=== PATIENT | female | born 1995 | race Caucasian/White ===

== ENCOUNTER 2023-02-24 21:33 | Emergency (ER) | payer OTHER, SELFPAY ==
--- NOTE | ~2023-02-24 | CT_ITS ---
Clinical Indication: Pain CT Scan of the Chest, Abdomen, and Pelvis with Contrast: Technique: Contiguous sections were acquired throughout the chest, abdomen, and pelvis after intraven ous administration of 100 cc of Omnipaque 350. Dose reduction technique was used on this scan by luke joyaing automated exposure control and iterative reconstruction technique. The dose-length product (DL P) was 855.45 mGy-cm. Findings: There is no evidence of any significant mediastinal, hilar or axillary lymphadenopathy. The mediastin al soft tissues and vascular structures appear normal. There is no evidence of pleural or pericardial effusion. The lungs are clear. No pulmonary nodules or infiltrates are noted. The liver, spleen, pancreas, gallbladder, adrenals and kidneys are within normal limits. No evidence of aortic aneurysm. No lymphadenopathy. No bowel obstruction. There is mild extensive haziness in the pericolonic fat and mesentery. Possible mild wall thickening of several left upper quadrant small bowel loops. No abscess or free. Urinary bladder is unremarkable. No definite adnexal mass seen. Small amount of pelvic ascites presen t. Impression: Questionable small bowel enteritis, most notably in the left upper quadrant. There are mild nonspecif ic inflammatory changes in the mesentery. Small amount of pelvic ascites, nonspecific. Reviewed, dictated and finalized at location . 411 DIRECTORY ASSISTANCE OPERATOR Impression: Questionable small bowel enteritis, most notably in the left upper quadrant. Th ere are mild nonspecific inflammatory changes in the mesentery. Small amount of pelvic ascites, nonspecific.
--- NOTE | ~2023-02-24 | XR_ITS ---
Clinical Indication: Chest pain PA and lateral views of the chest: Comparison: None Findings: The lungs are clear, without evidence of focal consolidation or pleural effusion. Cardiome diastinal silhouette is within normal limits. Bones and soft tissues are unremarkable. Impression: Normal chest. Reviewed, dictated and finalized at location . R SPORTS COACH OR INSTRUCTOR Impression: Normal chest.
--- NOTE | 2023-02-24 21:34 | ECG_ITS ---
Measurements Intervals [place] Rate: 87 P: 85 [place]: 123 QRS: 45 QRSD: 95 T: 50 QT: 357 QTc: 432 Interpretive Statements SINUS RHYTHM BASELINE ARTIFACT- I, III, AVR, AVL, AVF, V1-V6 NORMAL ECG NO PREVIOUS ECG AVAILABLE FOR COMPARISON Electronically Signed On 02-25-2023 10:24:57 LASER SPECIALIST by Erik Urban D.O.
[2023-02-24 21:35] VITALS: BP 116/96; PULSE 98; RESP 15; TEMP 36.4; O2SAT 100
[2023-02-24 21:55] LABS: Basophils Absolute Auto 0.1 K/mm3 (0.0-0.1); Basophils Percent Auto 0.4 % (0.2-1.2); Eosinophils Absolute Auto 0.1 K/mm3 (0-0.3); Eosinophils Percent Auto 0.8 % (0-4.4); Immature Granulocyte Absolute 0.03 K/mm3 (0.00-0.031); Immature Granulocyte Percent A 0.3 % (0-0.5); Lymphocytes Absolute Auto 3.21 K/mm3 (0.9-3.2); Mean Corpuscular HGB Conc 29.4 g/dl (32-36); Mean Corpuscular Hemoglobin 23.5 pg (26-34); Mean Platelet Volume 8.2 fl (7.4-10.4); Monocytes Absolute Auto 0.6 K/mm3 (0.1-0.6); Monocytes Percent Auto 4.8 % (2.6-8.5); Neutrophils Absolute Auto 7.9 K/mm3 (1.3-6.7); Neutrophils Percent Auto 66.7 % (45.5-73.1); Platelet Count Result 568 k/mm3 (150-375); Red Blood Count 4.25 M/mm3 (4.2-5.4); Red Cell Distribution Width 15.4 % (11.5-14.5); White Blood Count 11.9 K/mm3 (4.5-10.0)
[2023-02-24 22:05] LABS: Alanine Aminotransferase 14 U/L (6-35); Albumin Level 3.9 g/dL (3.5-5.1); Alkaline Phosphatase 74 U/L (38-126); Anion Gap 6 mmol/L (8-16); Aspartate Amino Transferase 23 U/L (14-36); Bilirubin,Total 0.3 mg/dL (0.2-1.3); Blood Urea Nitrogen 10 mg/dL (7-17); Carbon Dioxide 28 mmol/L (22-30); Chloride 102 mmol/L (98-107); Estimated CRCL calculation 120 ml/min; Estimated Glomerular Filt Rate > 60; Glucose 100 mg/dL (65-110); Lipase 100 U/L (23-300); Potassium 4.1 mmol/L (3.4-5.0); Sodium 136 mmol/L (137-145)
[2023-02-24 22:06] LABS: Hypochromasia 1+ (NORMAL); Platelet Estimate Increased (Adequate); Schistocytes None Seen (NORMAL); Target Cells 1+ (NORMAL)
[2023-02-24 22:10] LABS: INR 0.9
[2023-02-24 22:11] LABS: Partial Thromboplastin Time 33.6 SECONDS (22.3-36.8)
[2023-02-24 22:18] LABS: Troponin I < 0.012 ng/mL (0.000-0.034)
[2023-02-24 22:44] VITALS: PULSE 76
[2023-02-24 22:45] VITALS: BP 115/65; PULSE 70; RESP 18; O2SAT 100
[2023-02-24 22:59] LABS: Appearance Urine Cloudy (Clear); Bacteria Urine Rare /hpf; Bilirubin Urine Negative (Negative); Blood Urine Negative (Negative); Color Urine Yellow (Yellow); Glucose Urine UA Negative (Negative); Ketones Urine Negative (Negative); Leukocyte Esterase Ur Trace LEU/UL (Negative); Nitrate Urine Negative (Negative); Non Pathogenic Casts 0-2; Protein Urine Negative (Negative); RBC Urine 0-2 /hpf (0-2); Specific Grav Ur 1.025 (1.001-1.035); Squamous Epithelial Cell Urine Moderate /hpf (Few)
[2023-02-24 23:00] LABS: Add Urine Microscopic? YES
[2023-02-24 23:31] VITALS: BP 114/66; PULSE 76; O2SAT 99
--- NOTE | 2023-02-24 23:42 | ED.CHESTPAIN ---
HPI - Chest Pain General Chief Complaint: Chest Pain <JANET Cortez Last Filed: 02/25/23 03:11> Stated Complaint: chest pain <JANET Cortez Last Filed: 02/25/23 03:11> Time Seen by Provider: 02/24/23 22:40 <JANET Cortez Last Filed: 02/25/23 03:11> History of Present Illness HPI narrative: 27-year-old female reports for evaluation for right upper quadrant abdominal pain and right inferior rib pain x1 day. Patient states the pain is sharp in nature and is worse with deep inspiration and coughing. When asked where the pain is, she points to right upper quadrant just inferior to her lowest rib. She denies fever, nausea, vomiting or diarrhea. She endorses she feels constipated, last bowel movement was 3 days ago. Denies cough or congestion. No prior abdominal surgeries. <JANET Cortez Last Filed: 02/25/23 03:11> Related Data Allergies/Adverse Reactions: Allergies Allergy/AdvReac Type Severity Reaction Status Date / Time No Known Allergies Allergy Verified 02/24/23 22:46 <JANET Cortez Last Filed: 02/25/23 03:11> Review of Systems Review of Systems: CONSTITUTIONAL: Denies fever, chills, or sweats. EYES: Denies visual changes, redness, or discharge. ENT: Denies rhinorrhea, congestion, sore throat, or otalgia. CARDIOVASCULAR: Denies chest pain, palpitations, or edema. RESPIRATORY: Denies cough or dyspnea. GASTROINTESTINAL: See HPI GENITOURINARY: Denies dysuria or hematuria. SKIN: Denies rash or itching. MUSCULOSKELETAL: Denies back pain, joint pain, or myalgia. NEUROLOGIC: Denies headache, numbness, or weakness. PSYCHIATRIC: Denies anxiety or depression. <JANET Cortez Last Filed: 02/25/23 03:11> Exam Narrative: GENERAL: Well-appearing, well-nourished, and in no acute distress. HEAD: Normocephalic, atraumatic. EYES: PERRLA and EOMI. ENT: Nares clear, no rhinorrhea or epistaxis. Mucous membranes moist. NECK: Supple. CHEST: Clear to auscultation. No respiratory distress. Tenderness to the anterior inferior ribs without overlying skin changes, step-offs or crepitus. HEART: Regular rate and rhythm. No murmur heard. Normal peripheral pulses. ABDOMEN: normoactive bowel sounds. Abdomen soft with tenderness and guarding in the right upper quadrant. Positive Francisco's. No overlying skin changes. No rebound or rigidity. No CVA tenderness. EXTREMITIES: Normal range of motion. No edema. SKIN: Warm, dry, no rash. NEURO: No focal deficits. Alert and oriented x3 <JANET Cortez Last Filed: 02/25/23 03:11> Course Vital Signs Vital signs: Vital Signs Temperature 97.5 F L 02/24/23 21:35 Pulse Rate 98 02/24/23 21:35 Respiratory Rate 15 02/24/23 21:35 Blood Pressure 116/96 H 02/24/23 21:35 Pulse Oximetry 100 02/24/23 21:35 Oxygen Delivery Room Air 02/24/23 21:35 Temperature 97.5 F L 02/24/23 21:35 Pulse Rate 75 02/25/23 04:33 Respiratory Rate 18 02/24/23 22:45 Blood Pressure 126/64 02/25/23 04:33 Pulse Oximetry 99 02/25/23 04:33 Oxygen Delivery Room Air 02/24/23 21:35 <JANET Cortez Last Filed: 02/25/23 03:11> Vital Signs Temperature 97.5 F L 02/24/23 21:35 Pulse Rate 98 02/24/23 21:35 Respiratory Rate 15 02/24/23 21:35 Blood Pressure 116/96 H 02/24/23 21:35 Pulse Oximetry 100 02/24/23 21:35 Oxygen Delivery Room Air 02/24/23 21:35 Temperature 97.5 F L 02/24/23 21:35 Pulse Rate 75 02/25/23 04:33 Respiratory Rate 18 02/24/23 22:45 Blood Pressure 126/64 02/25/23 04:33 Pulse Oximetry 99 02/25/23 04:33 Oxygen Delivery Room Air 02/24/23 21:35 <MD Carey Marvin Last Filed: 02/25/23 07:58> MDM - Chest Pain MDM Narrative Medical decision making narrative: 27-year-old female reports for evaluation for right upper quadrant/ right inferior rib pain for 1 day. See HPI for further histo
[2023-02-25] MEDS: FAMOTIDINE 20 MG/2 ML VIAL IV PUSH (00:05)
[2023-02-25] MEDS: KETOROLAC 30 MG/ML VIAL (*BKC) IV PUSH (00:05)
[2023-02-25] MEDS: SODIUM CHLORIDE 0.9% IV 1,000 ML 999 ML IV CONT (00:06)
[2023-02-25 01:10] LABS: Lactic Acid Reflex < 0.5 mmol/L (0.7-2.0)
[2023-02-25 01:29] LABS: Troponin I < 0.012 ng/mL (0.000-0.034)
[2023-02-25 01:49] VITALS: BP 111/73; PULSE 83; O2SAT 100
[2023-02-25 04:05] LABS: Troponin I < 0.012 ng/mL (0.000-0.034)
[2023-02-25 04:33] VITALS: BP 126/64; PULSE 75; O2SAT 99
== END 2023-02-25 04:33 | disposition left against medical advice (07) ==
PROVIDERS: Emergency Medicine; Emergency Provider Physician Assistant
DX: K59.00 Constipation, unspecified (principal); R10.11 Right upper quadrant pain
CPT/HCPCS: 36415; 71046; 71260; 74177; 80053; 81001; 81025; 83605; 83690; 84484; 85025; 85610; 85730; 87077; 87086; 87088; 93005; 96361; 96374; 96375; 99284; J1885; J7030; Q9967

== ENCOUNTER 2023-02-26 03:03 | Emergency (ER) | payer OTHER, SELFPAY ==
--- NOTE | ~2023-02-26 | US_ITS ---
EXAMINATION: US pelvic complete w TV DATE: 02/26/2023 09:19 INDICATION: Abnormal CT TECHNIQUE: Multiple transabdominal and endovaginal sonographic images of the pelvis were obtained. COMPARISON: CT dated 02/26/2023 FINDINGS: The uterus measures 10.1 x 5.9 x 4.7 cm. 5 mm nabothian cyst at the cervix. The endometrial complex m easures 6 mm in thickness. The right ovary measures 3.3 x 2.2 x 2.0 cm. The left ovary measures 4.3 x 2.7 x 2.6 cm. There is normal vascular flow in the ovaries. There are a few subcentimeter anechoic c ysts/follicles at the bilateral ovaries. There is a larger 2.1 cm cyst with mildly increased peripher al vascular flow at the left ovary consistent with a corpus luteum cyst. Vascular flow identified in both ovaries on color Doppler. There is a small amount of anechoic free fluid in the cul-de-sac. IMPRESSION: 1. Small amount of simple appearing anechoic free fluid in the cul-de-sac. 2. 2.1 cm likely corpus luteum cyst in the left ovary. Reviewed, dictated and finalized at location A. UCT CRAFTSMAN
--- NOTE | ~2023-02-26 | CT_ITS ---
CT of the Abdomen and Pelvis: Indication: Abdominal pain Technique: 2.5 mm axial scans were obtained through the abdomen and pelvis following intravenous adm inistration of 100 cc of Omnipaque 350. Dose reduction technique was used on this scan by utilizing a utomated exposure control and iterative reconstruction technique. The dose-length product (DLP) was 6 23.18 mGy-cm. COMPARISON: 02/25/2023 Findings: Scans through the lung bases demonstrate right basilar atelectatic change. The liver, spleen, pancreas, gallbladder, adrenals and kidneys are within normal limits. No evidence of aortic aneurysm. No lymphadenopathy. No bowel obstruction or bowel wall thickening. There is no evidence to suggest acute appendicitis. Images through the pelvis were performed. Urinary bladder unremarkable. Small amount of free fluid pr esent in the pelvis, possible mild peripheral enhancement. Both ovaries are minimally prominent, with out distinct abnormal mass. Uterus appears grossly unremarkable. Possible mild infiltration of pelvic fat planes. Impression: Probable free fluid with possible mild peripheral enhancement. Mild dilatation of pelvic fat planes. Consider pelvic inflammatory disease with possible small pelvic abscess versus free fluid. No other significant findings. Reviewed, dictated and finalized at location . NCIAL AIDS OFFICER Impression: Probable free fluid with possible mild peripheral enhancement. Mild dilatation of pelvic fat planes. Consider pelvic inflammatory disease with possible small pelvic abscess versus free fluid. No other significant findings.
[2023-02-26 03:07] VITALS: BP 121/69; PULSE 83; RESP 17; TEMP 36.6; O2SAT 100
[2023-02-26 03:46] LABS: Appearance Urine Clear (Clear); Bacteria Urine None Seen /hpf; Bilirubin Urine Negative (Negative); Blood Urine Negative (Negative); Color Urine Yellow (Yellow); Glucose Urine UA Negative (Negative); Ketones Urine Negative (Negative); Leukocyte Esterase Ur Trace LEU/UL (Negative); Nitrate Urine Negative (Negative); Non Pathogenic Casts 0-2; Protein Urine Negative (Negative); RBC Urine 0-2 /hpf (0-2); Specific Grav Ur 1.018 (1.001-1.035); Squamous Epithelial Cell Urine None seen /hpf (Few); Urobilinogen Urine 0.2 mg/dL (<2.0); WBC Urine 0-5 /hpf; pH Urine 6.5 (5.0-9.0)
[2023-02-26 04:18] LABS: Add Urine Microscopic? YES
--- NOTE | 2023-02-26 05:45 | ED.ABDPAIN ---
HPI - Abdominal Pain General Chief Complaint: Abdominal Pain <Matt Rosales DO - Last Filed: 02/26/23 08:29> Stated Complaint: Sharp pain to right side, <Matt Rosales DO - Last Filed: 02/26/23 08:29> Time Seen by Provider: 02/26/23 03:20 <Matt Rosales DO - Last Filed: 02/26/23 08:29> Source: patient <Matt Rosales DO - Last Filed: 02/26/23 08:29> Limitations: no limitations <Matt Rosales DO - Last Filed: 02/26/23 08:29> History of Present Illness HPI narrative: Patient is a 27-year-old female presents to the emergency department complaining of abdominal pain. Patient states the pain is in her right upper abdomen, sharp, has been present for the past 2 days, constant, waxes and wanes, has not noticed anything making the pain better or worse, denies any she has pain in the past, has not tried anything for the pain. Patient states her last menstrual period was 1 month ago and her last bowel movement was 2 days ago. Patient denies history of kidney stones. Patient emesis to having her gallbladder. Patient denies nausea, vomiting, diarrhea, melena, hematochezia, dysuria, hematuria, urinary frequency, urinary urgency, cough, chest pain, shortness of breath, fever, sore throat, nasal congestion, recent injuries, recent illness. Patient admits to being sexually active, intermittently uses protection, denies history of sexually transmitted infections. Patient denies any abnormal vaginal discharge. <Matt Rosales DO - Last Filed: 02/26/23 08:29> Related Data Allergies/Adverse Reactions: Allergies Allergy/AdvReac Type Severity Reaction Status Date / Time No Known Allergies Allergy Verified 02/24/23 22:46 <Matt Rosales DO - Last Filed: 02/26/23 08:29> Review of Systems Review of Systems: A 10 system review of systems was completed on the patient and is negative except for what is stated in the HPI. Nursing and ancillary documentation was reviewed. <Matt Rosales DO - Last Filed: 02/26/23 08:29> PMFSH Comments At time of signature, I have reviewed and agree with nursing past medical, surgical, social and family history unless otherwise noted. Please see the nursing chart for further information. There is no relevant family history pertinent to the presenting complaint. <Matt Rosales DO - Last Filed: 02/26/23 08:29> Exam Narrative: CONST: No acute distress. Well nourished. Patient is sleeping comfortably in bed upon my arrival to the room. HENMT: Head is normocephalic and atraumatic. Moist mucous membranes. No posterior oropharynx erythema. EYES: No conjunctival icterus, injection, or pallor. PERRL. NECK: No meningeal signs. RESP: Able to speak in full sentences. Normal respiratory effort. CTAB. CARDIO: Regular rate. Regular rhythm. 2+ DP and radial pulses bilaterally. GI: Nondistended. Soft. Mild tenderness palpation in the right upper quadrant. Positive Francisco sign. No rebound or guarding or rigidity. No McBurney's point tenderness to palpation. No palpable masses or hernias. : No CVA tenderness to palpation. Pelvic examination performed with female nurse finance clerk present at bedside. Cervical os is closed, there is mild erythema at the cervical os with scant friability, no on discharge: From the cervix however there is white discharge that is thin and present on the cervix and within the vaginal vault. Bimanual examination revealed cervical motion tenderness. No palpable adnexal masses or adnexal tenderness to palpation SKIN: No rashes or lesions noted on exposed skin. NEURO: Oriented x3. Moves all extremities. EXTREM/MSK/BACK: No pedal edema. PSYCH: Normal affect. <Matt Rosales, - Last Filed: 02/26/23 08:29> Course Course Emergency Course: patient educated on diagnosis and treatment plan. Encouraged her to contact her sexual partner so he can also be treated for STI. She also reports she will follo
[2023-02-26] MEDS: SODIUM CHLORIDE 0.9% IV 1,000 ML 999 ML IV CONT (06:10)
[2023-02-26 06:11] LABS: Basophils Absolute Auto 0.1 K/mm3 (0.0-0.1); Basophils Percent Auto 0.6 % (0.2-1.2); Eosinophils Absolute Auto 0.1 K/mm3 (0-0.3); Eosinophils Percent Auto 1.2 % (0-4.4); Hematocrit 31.2 % (37.0-47.0); Immature Granulocyte Absolute 0.04 K/mm3 (0.00-0.031); Immature Granulocyte Percent A 0.4 % (0-0.5); Lymphocytes Absolute Auto 3.01 K/mm3 (0.9-3.2); Lymphocytes Percent Auto 33.7 % (18.3-44.2); Mean Corpuscular HGB Conc 28.8 g/dl (32-36); Mean Corpuscular Hemoglobin 23.5 pg (26-34); Mean Corpuscular Volume 81.5 fl (80-100); Mean Platelet Volume 8.3 fl (7.4-10.4); Monocytes Absolute Auto 0.6 K/mm3 (0.1-0.6); Monocytes Percent Auto 6.4 % (2.6-8.5); Neutrophils Absolute Auto 5.2 K/mm3 (1.3-6.7); Neutrophils Percent Auto 57.7 % (45.5-73.1); Platelet Count Result 471 k/mm3 (150-375); Red Blood Count 3.83 M/mm3 (4.2-5.4); Red Cell Distribution Width 15.3 % (11.5-14.5); White Blood Count 8.9 K/mm3 (4.5-10.0)
[2023-02-26] MEDS: HYDROcodone/acetaminophen (*CRX) 5-325 MG TABLET 1 TAB PO (06:11)
[2023-02-26 06:16] VITALS: BP 100/52; PULSE 74; RESP 14; O2SAT 99
[2023-02-26 06:25] LABS: Alanine Aminotransferase 13 U/L (6-35); Albumin Level 3.2 g/dL (3.5-5.1); Alkaline Phosphatase 65 U/L (38-126); Anion Gap 5 mmol/L (8-16); Aspartate Amino Transferase 23 U/L (14-36); Bilirubin,Total 0.1 mg/dL (0.2-1.3); Blood Urea Nitrogen 9 mg/dL (7-17); Calcium 8.4 mg/dL (8.4-10.2); Carbon Dioxide 28 mmol/L (22-30); Chloride 104 mmol/L (98-107); Estimated CRCL calculation 120 ml/min; Estimated Glomerular Filt Rate > 60; Glucose 91 mg/dL (65-110); Lipase 109 U/L (23-300); Magnesium 1.9 mg/dL (1.6-2.3); Potassium 3.8 mmol/L (3.4-5.0); Sodium 137 mmol/L (137-145)
[2023-02-26 06:46] LABS: Hypochromasia 1+ (NORMAL); Platelet Estimate Increased (Adequate); Schistocytes None Seen (NORMAL)
[2023-02-26 07:21] VITALS: BP 128/82; PULSE 63; RESP 18; O2SAT 97
[2023-02-26 09:57] LABS: Trichomonas Vag PCR NOT DETECTED (NOT DETECTE)
[2023-02-26 10:20] LABS: Chlamydia trachomatis DETECTED (NOT DETECTE); Neisseria gonorrhoeae PCR NOT DETECTED (NOT DETECTE)
[2023-02-26] MEDS: LIDOCAINE HCL 1% LOCAL INJ 10 ML VIAL (10:43)
[2023-02-26] MEDS: cefTRIAXone 1 GM VIAL 0.5 GM IM (10:43)
[2023-02-26 10:44] VITALS: BP 114/64; PULSE 80; RESP 18; O2SAT 98
== END 2023-02-26 10:53 | disposition home or self-care (01) ==
PROVIDERS: Student in an Organized Health Care Education/Training Program; Emergency Provider Emergency Medicine
DX: N73.9 Female pelvic inflammatory disease, unspecified (principal); A74.81 Chlamydial peritonitis; N83.12 Corpus luteum cyst of left ovary
CPT/HCPCS: 36415; 74177; 76830; 76856; 80053; 81001; 81025; 83690; 83735; 85025; 87491; 87591; 87661; 96360; 96372; 99284; A9270; J0696; J7030; Q9967

== ENCOUNTER 2023-12-14 10:02 | Emergency (ER) | payer OTHER, SELFPAY ==
--- NOTE | ~2023-12-14 | XR_ITS ---
Right Knee Technique: AP, lateral, and sunrise views were obtained. Clinical History: Pain and swelling Findings: There is an acute, essentially nondisplaced, nondepressed fracture of the medial tibial steve teau, extending to the medial cortex of the medial tibial metaphyseal region. Associated moderate lip ohemarthrosis noted. Impression: Acute, essentially nondisplaced, nondepressed fracture isolated to the medial tibial plateau region, as detailed above. Associated moderate lipohemarthrosis. Reviewed, dictated and finalized at location M. Impression: Acute, essentially nondisplaced, nondepressed fracture isolated to the medial t ibial plateau region, as detailed above. Associated moderate lipohemarthrosis.
--- NOTE | 2023-12-14 10:16 | ED.LOWEXIN ---
HPI - Extremity Injury (Lower) General Chief Complaint: Extremity Injury, Lower Stated Complaint: R leg lump/pain Time Seen by Provider: 12/14/23 10:08 Source: patient Mode of arrival: ambulatory Limitations: no limitations History of Present Illness HPI Narrative: 28 years old white female tripped and fell on the right knee yesterday, complaining of right knee pain, denies other injuries. Patient reported that pain got worse standing and putting weight on the right leg or bending or extending her right. Related Data Allergies Allergy/AdvReac Type Severity Reaction Status Date / Time No Known Allergies Allergy Verified 02/24/23 22:46 Review of Systems Review of Systems: All systems reviewed & are unremarkable except as noted in HPI and below Exam Narrative: General appearance: Well-developed, well-nourished Skin: Normal color Head: Normocephalic, nontraumatic Eyes: Clear conjunctiva ENT: Oropharynx normal, ears normal, nose normal Neck: Supple, nontender Chest and respiratory: Airway patent, no respiratory distress, no accessory muscle use Heart: Regular rate/rhythm Abdomen: Soft, nontender, no organomegaly, quiet bowel sounds Vascular: Normal peripheral pulses, normal capillary refill. Musculoskeletal: Right knee exam showed diffuse tenderness, slightly swollen compared to the left 1, limited range of motion, Neurologic: Alert and oriented ?3, TRUST ADMINISTRATIVE ASSISTANT is normal as tested, no gross motor deficit Course Consultations Consultation #1: Dr. Kim Outpatient follow-up Date: 12/14/23 Time: 11:38 Vital Signs Vital signs: Vital Signs Temperature 36.9 C 12/14/23 10:30 Pulse Rate 87 12/14/23 10:30 Respiratory Rate 16 12/14/23 10:30 Blood Pressure 125/78 12/14/23 10:30 Pulse Oximetry 100 12/14/23 10:30 Temperature 36.9 C 12/14/23 10:30 Pulse Rate 87 12/14/23 10:30 Respiratory Rate 16 12/14/23 10:30 Blood Pressure 125/78 12/14/23 10:30 Pulse Oximetry 100 12/14/23 10:30 MDM - Extremity Injury (Lower) MDM Narrative Medical decision making narrative: patient had a fall yesterday on the right knee, Vital signs are stable Physical exam showing diffuse tenderness of the right knee with limited range of motion X-ray of the right knee showing nondisplaced nondepressed fracture tibial plateau Dr. Kim was notified, outpatient follow-up Knee immobilizer Nonweightbearing The pt was discharged to home.the pt,s condition upon discharge was fair,education was provided to the pt in reference to the final impression,discharge study results,treatment,prognosis and need for follow up . Differential Diagnosis Differential diagnosis: Likely other (Sprain/strain versus fracture) Imaging Data Radiologist's impression: Impressions Knee X-Ray 12/14/23 10:31 Impression: Acute, essentially nondisplaced, nondepressed fracture isolated to the medial tibial plateau region, as detailed above. Associated moderate lipohemarthrosis. Critical Care Time Critical Care Time Critical Care Time: No Discharge Plan Discharge Clinical Impression: Closed fracture of right tibial plateau Patient Disposition: Home, Self-Care Condition: Stable Additional Instructions: Return if symptoms are worsening , call your Dr. Kim for appointment, take ibuprofen 600 mg every 6 hours as as needed for aches and pain, continue home medications., no weight-bearing, crutches Prescriptions: New hydrocodone-acetaminophen 5-325 mg tablet 1 tablet PO Q4H Qty: 20 0RF No Action polyethylene glycol 3350 [ClearLax] 17 gram/dose powder 17 g PO BID Qty: 119 0RF doxycycline monohy
[2023-12-14 10:30] VITALS: BP 125/78; PULSE 87; RESP 16; TEMP 36.9; O2SAT 100
[2023-12-14 11:25] VITALS: BP 115/69; PULSE 89; RESP 17; O2SAT 98
[2023-12-14] MEDS: HYDROcodone/acetaminophen (*CRX) 5-325 MG TABLET 1 TAB PO (11:42)
[2023-12-14] MEDS: IBUPROFEN 600 MG TABLET PO (11:43)
[2023-12-14 12:43] VITALS: BP 122/74; PULSE 83; RESP 15; O2SAT 98
== END 2023-12-14 12:59 | disposition home or self-care (01) ==
PROVIDERS: Emergency Provider Emergency Medicine
DX: S82.144A Nondisplaced bicondylar fracture of right tibia, initial encounter for closed fracture (principal); W01.0XXA Fall on same level from slipping, tripping and stumbling without subsequent striking against object, initial encounter
CPT/HCPCS: 73564; 99284; A9270

== ENCOUNTER 2024-04-12 11:16 | Emergency (ER) | payer OTHER, SELFPAY ==
[2024-04-12 11:27] VITALS: BP 124/79; PULSE 115; RESP 15; TEMP 36.6; O2SAT 100
[2024-04-12 12:25] VITALS: BP 120/77; PULSE 89; RESP 14; TEMP 36.7; O2SAT 97
--- NOTE | 2024-04-12 13:07 | ED.GENADULT ---
HPI - General Adult General Chief complaint: Skin/Abscess/Foreign Body Stated complaint: ingrown hair on chin? Time Seen by Provider: 04/12/24 12:27 History of Present Illness HPI narrative: 28-year-old female presenting presented to the emergency department for evaluation for a facial abscess on the left lateral chin. Related Data Allergies Allergy/AdvReac Type Severity Reaction Status Date / Time No Known Allergies Allergy Verified 04/12/24 11:27 Review of Systems Review of Systems: All systems reviewed & are unremarkable except as noted in HPI and below PMFSH Family History Family History Grandparent Cerebrovascular accident Social History Social History Smoking status: Current every day smoker Tobacco type: cigarettes Alcohol intake: never Substance use: never Do You Feel Safe in your Home?: Yes Lack of Transportation: No Lack of Food: Never True Current Housing: I Have Housing Concerned About Future Housing: No Difficulty Paying Gas/Electric Bills: No Difficulty Paying for Meds: No Currently Unemployed: YES Education: High School Diploma/GED Difficulty w/ Childcare or Family Care: No Exam Narrative: APPEARANCE: Well appearing, no pain, no distress, well-nourished. HEAD: normocephalic, atraumatic. EYES: PERRLA/EOMI, conjunctivae clear. NOSE: Normal no drainage EARS:TMS clear with good light reflex. THROAT: Pharynx clear, no exudate. NECK: Supple. No adenopathy, no masses. RESPIRATORY: Airway patent, respirations nonlabored. Clear to auscultation bilaterally, no rales, rhonchi, wheezing. CARDIOVASCULAR: Regular rate and rhythm without murmurs rubs or gallops. ABDOMINAL: Soft, nontender, nondistended, normal bowel sounds MUSCULOSKELETAL: Moves all extremities. Strength/ROM intact, No edema, No calf tenderness. NEURO: Alert. Cranial nerves II through XII intact. Good gait. Good coordination SKIN: Facial abscess on left lateral chest Course Vital Signs Vital signs: Vital Signs Temperature 97.9 F 04/12/24 11:27 Pulse Rate 115 H 04/12/24 11:27 Respiratory Rate 15 04/12/24 11:27 Blood Pressure 124/79 04/12/24 11:27 Pulse Oximetry 100 02/17/25 11:27 Oxygen Delivery Room Air 04/12/24 11:27 Temperature 98.0 F 04/12/24 12:25 Pulse Rate 89 04/12/24 12:25 Respiratory Rate 14 04/12/24 12:25 Blood Pressure 120/77 04/12/24 12:25 Pulse Oximetry 97 04/12/24 12:25 Oxygen Delivery Room Air 04/12/24 11:27 Medical Decision Making MDM Narrative Medical decision making narrative: 28-year-old female presents emergency department for evaluation for a facial abscess. No abscess amenable to drainage. Patient will be started on antibiotics. First dose antibiotics was given emergency department. Patient was advised to use warm compresses but not to squeeze the abscess. Patient was encouraged of close follow-up with her primary care physician. Differential Diagnosis Differential Diagnosis: Cellulitis, abscess, acne Vital Signs Vital Signs: Vital Signs Temperature 97.9 F 04/12/24 11:27 Pulse Rate 115 H 04/12/24 11:27 Respiratory Rate 15 04/12/24 11:27 Blood Pressure 124/79 04/12/24 11:27 Pulse Oximetry 100 04/12/24 11:27 Oxygen Delivery Room Air 04/12/24 11:27 Temperature 98.0 F 04/12/24 12:25 Pulse Rate 89 04/12/24 12:25 Respiratory Rate 14 04/12/24 12:25 Blood Pressure 120/77 04/12/24 12:25 Pulse Oximetry 97 04/12/24 12:25 Oxygen Delivery Room Air 04/12/24 11:27 Discharge Plan Discharge Clinical Impression: Abscess of face Patient Disposition: Home, Self-Care Condition: Stable Instructions: Antibiotic Form, Abscess (ED) Additional Instructions: Wound care as directed. , warm compresses. Antibiotic as directed until completed. Have close follow-up with your primary care physician. If you have any worsening symptoms then please call or return to the emergency department. Patient Language: Guatemalan Prescriptions: New clindamycin HCl [Cleocin HCl] 300 mg capsule 300 mg PO Q6H 7 Days Qty: 28 0RF Follow-up/Referrals: PHYSICIAN,CITY DISTRIBUTION CLERK [Non-Staff] -
[2024-04-12] MEDS: CLINDAMYCIN HCL 150 MG CAP 300 MG PO (13:42)
--- OUTSIDE RECORDS SUMMARY | 2024-04-12 14:16 | XMS_ITS | Clinical Summary ---
Author Organization [address] Address [address] [place] [id number] Care Team Providers Care Dynamometer Tuner Name Role Phone No, Physician Primary Care Provider [phone] Allergies No known active allergies Medications amoxicillin (AMOXIL) 875 mg tablet Take 875 mg by mouth 2 (two) times a day 1 Active albuterol HFA (PROVENTIL HFA,VENTOLIN HFA,PROAIR HFA) 90 mcg/actuation inhalerIndicati ons:Viral illness Inhale 2 puffs every 6 (six) hours as needed for wheezing or shortness of breath 1 Inhaler 1 Active traMADoL (ULTRAM) 50 mg tablet Take 1-2 tablets (50-100 mg total) by mouth every 6 (six) hours as needed for pain 20 tablet 2 Active Active Problems No known active problems Social History Tobacco Use Types Packs/Day Years Used Date Smoking Tobacco: Never Assessed Comments Unknown Sex and Gender Information Value Date Recorded Sex Assigned at Not on file Legal Sex Female 4:57 PM CDT Gender Identity Not on file Sexual Orientation Not on file Obstetrics History Last Filed Vital Signs Vital Sign Reading Time Taken Comments Blood Pressure 124/80 01/11/2022 11:33 AM MID LEVEL PRACTITIONER Pulse 70 01/11/2022 11:33 AM MID LEVEL PRACTITIONER Temperature 36.7 C (98 F) 01/11/2022 11:33 AM MID LEVEL PRACTITIONER Respiratory Rate 18 01/11/2022 11:33 AM MID LEVEL PRACTITIONER Oxygen Saturation 100% 01/11/2022 11:33 AM MID LEVEL PRACTITIONER Inhaled Oxygen Concentration - - Weight 90.7 kg (200 lb) 01/11/2022 9:13 AM MID LEVEL PRACTITIONER Height 157.5 cm (5' 2 ) 10/09/2020 5:44 PM CDT Body Mass Index 36.58 10/09/2020 5:44 PM CDT Plan of Treatment Health Maintenance Due Date Last Done Comments Cervical Cancer Screening 1997 Depression Screening 1997 Hepatitis C Screening 1997 Regular Well Visit/Exam 18-64 12/01/2015 Influenza Vaccine (#1) 2023 4, 11/18/2011, 12/12/2009 DTaP/Tdap/Td Vaccine (7 - Td or Tdap) 07/02/2024 07/02/2014, 06/28/2009, 12/28/2002, Additional history exists Varicella Vaccines Completed 06/28/2009, 03/05/2000 HPV Vaccines Completed 05/21/2018, 09/24, 06/28/2009 Pneumococcal vaccine <65 Aged Out No longer eligible based on patient's age to complete this topic Insurance [facility] Care Teams Dynamometer Tuner Relationship Specialty Start Date End Date No, Physician PCP - General 10/09/20
--- OUTSIDE RECORDS SUMMARY | 2024-04-12 14:16 | XMS_ITS | Referral Summary ---
Author Organization [facility] [employer] Address [address] [place] [address] Care Team Providers Care Investment Officer Name Role Phone Unavailable Primary Care Provider Unavailabl e Source Comments [facility],non-owned Affiliates and Associated Physician Practices is amultiple site organization consisting of ambulatory clinics and hospital sitesin [place], [place], [place] and [place]. This disclosure is being madepursuant to the Care Everywhere program and may not contain all information available regarding this patient. Last updated 17.[facility] [employer] Allergies No known active allergies Medications * Be aware that medications may not be up to date on this document. Alwaysverify current medications with the patient. Medication Sig Dispensed Refills Start Date End Date Status etonogestrel (NEXPLANON) 68 MG implant 68 mg by Subdermal route as directed Active Social History Tobacco Use Types Packs/Day Years Used Date Smoking Tobacco: Every Day Smokeless Tobacco: Never Sex and Gender Information Value Date Recorded Sex Assigned at Not on file Gender Identity Not on file Sexual Orientation Not on file Last Filed Vital Signs Vital Sign Reading Time Taken Comments Blood Pressure 108/70 05/31/2017 4:10 PM CDT Pulse 69 05/31/2017 4:10 PM CDT Temperature 36.8 C (98.2 F) 05/31/2017 4:10 PM CDT Respiratory Rate 14 05/31/2017 4:10 PM CDT Oxygen Saturation 98% 05/31/2017 4:10 PM CDT Inhaled Oxygen Concentration - - Weight 72.6 kg (160 lb) 05/31/2017 4:10 PM CDT Height 160 cm (5' 3 ) 05/31/2017 4:10 PM CDT Body Mass Index 28.34 05/31/2017 4:10 PM CDT Plan of Treatment Not on file
--- OUTSIDE RECORDS SUMMARY | 2024-04-12 14:16 | XMS_ITS | Patient Health Summary ---
Author Organization [facility] [email or web address] Address [address] [place] [address] Care Team Providers Care Monkey Trainer Name Role Phone Unavailable Primary Care Provider Unavailabl e Note from [facility],non-owned Affiliates and Associated Physician Practices is amultiple site organization consisting of ambulatory clinics and hospital sitesin [place], [place], [place] and [place]. This disclosure is being madepursuant to the Care Everywhere program and may not contain all information available regarding this patient. Last updated 17.[facility] [email or web address] Allergies No known active allergies Medications * Be aware that medications may not be up to date on this document. Alwaysverify current medications with the patient. * etonogestrel (NEXPLANON) 68 MG implant 68 mg by Subdermal route as directed Social History Tobacco Use Types Packs/Day Years [...]
--- OUTSIDE RECORDS SUMMARY | 2024-04-12 14:16 | XMS_ITS | Referral Summary ---
Author Organization [address] Address [address] [place] [phone] Care Team Providers Care Motor Setter Name Role Phone No, Physician Primary Care Provider Allergies No known active allergies Medications amoxicillin [...] Comments Blood Pressure 124/80 01/11/2022 11:33 AM ROOF TILER Pulse 70 01/11/2022 11:33 AM ROOF TILER Temperature 36.7 C (98 F) 01/11/2022 11:33 AM ROOF TILER Respiratory Rate 18 01/11/2022 11:33 AM ROOF TILER Oxygen Saturation 100% 01/11/2022 11:33 AM ROOF TILER Inhaled Oxygen Concentration - - Weight 90.7 kg (200 lb) 01/11/2022 9:13 AM ROOF TILER Height 157.5 cm (5' 2 ) 10/09/2020 5:44 PM CDT Body Mass Index 36.58 10/09/2020 5:44 PM CDT Plan of Treatment Not on file Insurance [facility] Care Teams Motor Setter Relationship Specialty Start Date End Date No, Physician PCP - General 10/09/20
--- OUTSIDE RECORDS SUMMARY | 2024-04-12 14:16 | XMS_ITS | Clinical Summary ---
Author Organization [facility] [employer] Address [address] [facility] [place] [address] Care Team Providers Care Critical Care Technician Name Role Phone Unavailable Primary Care Provider Unavailabl e Source Comments [facility] [employer],non-owned Affiliates and Associated Physician Practices is amultiple site organization consisting of ambulatory clinics and hospital sitesin [place], [place], [place] and [place]. This disclosure is being madepursuant to the Care Everywhere program and may not contain all information available regarding this patient. Last updated 17.[facility] [employer] Allergies No known active allergies Medications * [...] 05/31/2017 4:10 PM CDT Plan of Treatment Health Maintenance Due Date Last Done Comments PAP SMEAR 1997 HIV SCREENING 2012 HPV VACCINE (1 - 3-dose series) 2012 HEPATITIS C SCREENING 11/26/2015 DTAP/TDAP/TD VACCINES (1 - Tdap) 2016 HEPATITIS B VACCINE (1 of 3 - 19+ 3-dose series) 2016 PNEUMOCOCCAL VACCINE (1 of 2 - PCV) 2016 COVID-19 VACCINE (1 - 2023-2 5 season) 2023 INFLUENZA VACCINE (#1) 2023 DEPRESSION SCREENING 02/25/2024 ZOSTER VACCINE (1 of 2) 12/01/2047 HIB VACCINE Aged Out No longer eligi ble based on patient's age to complete this topic MENINGOCOCCAL (Group B) VACCINE Aged Out No longer eligible based on patient's age to complete this topic MENINGOCOCCAL VACCINE Aged Out No degar jorge luis eligible based on patient's age to complete this topic
--- OUTSIDE RECORDS SUMMARY | 2024-04-12 15:39 | XMS_ITS | Clinical Summary ---
Author Organization [facility] [employer] Address [address] [place] [address] Care Team Providers Care Cnc Mill Programmer Name Role Phone Unavailable Primary Care Provider Unavailabl e Source Comments [facility] [employer],non-owned Affiliates and Associated Physician Practices is amultiple site organization consisting of ambulatory clinics and hospital sitesin [place], [place], [place] and [place]. This disclosure is being madepursuant to the Care Everywhere program and may not contain all information available regarding this patient. Last updated 17.[facility] [employer] Allergies No known active allergies Medications * [...] this topic MENINGOCOCCAL VACCINE Aged Out No edgar jorge luis eligible based on patient's age to complete this topic
--- OUTSIDE RECORDS SUMMARY | 2024-04-12 15:39 | XMS_ITS | Referral Summary ---
Author Organization [facility] [employer] Address [address] [place] [address] Care Team Providers Care Career Technical Counselor Name Role Phone Unavailable Primary Care Provider Unavailabl e Source Comments [facility] [employer],non-owned Affiliates and Associated Physician Practices is amultiple site organization consisting of ambulatory clinics and hospital sitesin [place], [place] and [place]. This disclosure is being madepursuant to the Care Everywhere program and may not contain all information available regarding this patient. Last updated 17.[facility] [employer] Allergies No known active allergies Medications * [...]
--- OUTSIDE RECORDS SUMMARY | 2024-04-12 15:39 | XMS_ITS | Clinical Summary ---
Author Organization [address] Address [address] [place] [phone] Care Team Providers Care Slice Cutting Machine Operator Helper Name Role Phone No, Physician Primary Care Provider [phone] Allergies No known active allergies Medications amoxicillin [...] Comments Blood Pressure 124/80 01/11/2022 11:33 AM RESTORATIVE CARE TECHNICIAN Pulse 70 01/11/2022 11:33 AM RESTORATIVE CARE TECHNICIAN Temperature 36.7 C (98 F) 01/11/2022 11:33 AM RESTORATIVE CARE TECHNICIAN Respiratory Rate 18 01/11/2022 11:33 AM RESTORATIVE CARE TECHNICIAN Oxygen Saturation 100% 01/11/2022 11:33 AM RESTORATIVE CARE TECHNICIAN Inhaled Oxygen Concentration - - Weight 90.7 kg (200 lb) 01/11/2022 9:13 AM RESTORATIVE CARE TECHNICIAN Height 157.5 cm (5' 2 ) 10/09/2020 [...] patient's age to complete this topic Insurance [facility] Care Teams Slice Cutting Machine Operator Helper Relationship Specialty Start Date End Date No, Physician PCP - General 10/09/20
--- OUTSIDE RECORDS SUMMARY | 2024-04-12 15:39 | XMS_ITS | Patient Health Summary ---
Author Organization [facility] [employer] Address [address] [place] [address] Care Team Providers Care Cleaning Handyman Name Role Phone Unavailable Primary Care Provider Unavailabl e Note from [facility],non-owned Affiliates and Associated Physician Practices is amultiple site organization consisting of ambulatory clinics and hospital sitesin [place], [place], [place] and [place]. This disclosure is being madepursuant to the Care Everywhere program and may not contain all information available regarding this patient. Last updated 17.[facility] [employer] Allergies No known active allergies Medications * [...]
--- OUTSIDE RECORDS SUMMARY | 2024-04-12 15:39 | XMS_ITS | Referral Summary ---
Author Organization [address] Address [address] [place] [phone] Care Team Providers Care Ladies Locker Room Attendant Name Role Phone No, Physician Primary Care Provider [phone] Allergies No known active allergies Medications amoxicillin [...] Comments Blood Pressure 124/80 01/11/2022 11:33 AM ASSOCIATE PROGRAMMER Pulse 70 01/11/2022 11:33 AM ASSOCIATE PROGRAMMER Temperature 36.7 C (98 F) 01/11/2022 11:33 AM ASSOCIATE PROGRAMMER Respiratory Rate 18 01/11/2022 11:33 AM ASSOCIATE PROGRAMMER Oxygen Saturation 100% 01/11/2022 11:33 AM ASSOCIATE PROGRAMMER Inhaled Oxygen Concentration - - Weight 90.7 kg (200 lb) 01/11/2022 9:13 AM ASSOCIATE PROGRAMMER Height 157.5 cm (5' 2 ) 10/09/2020 5:44 PM CDT Body Mass Index 36.58 10/09/2020 5:44 PM CDT Plan of Treatment Not on file Insurance [facility] Care Teams Ladies Locker Room Attendant Relationship Specialty Start Date End Date No, Physician PCP - General 10/09/20
== END 2024-04-12 13:45 | disposition home or self-care (01) ==
LOC: ANHED 13:12
PROVIDERS: Emergency Provider Emergency Medicine
DX: L02.01 Cutaneous abscess of face (principal); F17.210 Nicotine dependence, cigarettes, uncomplicated
CPT/HCPCS: 99283; A9270

== ENCOUNTER 2024-06-11 05:59 | Emergency (ER) | payer OTHER, SELFPAY ==
--- OUTSIDE RECORDS SUMMARY | 2024-06-11 06:02 | XMS_ITS | Clinical Summary ---
Author Organization [facility] Address [address] [facility] [place] [address] Care Team Providers Care Plumbing Installer Name Role Phone Unavailable Primary Care Provider Unavailabl e Source Comments [facility],non-owned Affiliates and Associated Physician Practices is amultiple site organization consisting of ambulatory clinics and hospital sitesin [place], [place], [place] and [place]. This disclosure is being madepursuant to the Care Everywhere program and may not contain all information available regarding this patient. Last updated 17.[facility] Allergies No known active allergies Medications * Be aware that medications may not be up to date on this document. Alwaysverify current medications with the patient. etonogestrel (NEXPLANON) 68 MG implant 68 mg by Subdermal route as directed Active Social History Tobacco Use Types Packs/Day Years Used Date Smoking Tobacco: Every Day Smokeless Tobacco: Never Comments No Sex and Gender Information Value Date Recorded Sex Assigned at Not on file Legal Sex Female 1:35 PM CDT Gender Identity Not on file [...] of 3 - 19+ 3-dose series) 2016 COVID-19 VACCINE (1 - 2023-2 5 season) 2023 DEPRESSION SCREENING 02/25/2024 INFLUENZA VACCINE (Season Ended) 2024 ZOSTER VACCINE (1 of 2) 12/01/2047 HIB VACCINE Aged Out No longer eligi ble based on patient's age to complete this topic MENINGOCOCCAL (Group B) VACC INE SHARED DECISION-MAKING Aged Out No longer eligibl e based on patient's age to complete this topic MENINGOCOCCAL GROUPS A/C/Y/W VACCINE Aged Out No longer eligible b ased on patient's age to complete this topic PNEUMOCOCCAL VACCINE Aged Out No long er eligible based on patient's age to complete this [place] [address] [place] [address]
--- OUTSIDE RECORDS SUMMARY | 2024-06-11 06:02 | XMS_ITS | Referral Summary ---
Author Organization [address] Address [address] [place] [phone] Care Team Providers Care Senior Firmware Engineer Name Role Phone No, Physician Primary Care Provider [phone] Allergies No known active allergies Medications amoxicillin [...] Comments Blood Pressure 124/80 01/11/2022 11:33 AM MILL TENDER SECOND OPERATOR Pulse 70 01/11/2022 11:33 AM MILL TENDER SECOND OPERATOR Temperature 36.7 C (98 F) 01/11/2022 11:33 AM MILL TENDER SECOND OPERATOR Respiratory Rate 18 01/11/2022 11:33 AM MILL TENDER SECOND OPERATOR Oxygen Saturation 100% 01/11/2022 11:33 AM MILL TENDER SECOND OPERATOR Inhaled Oxygen Concentration - - Weight 90.7 kg (200 lb) 01/11/2022 9:13 AM MILL TENDER SECOND OPERATOR Height 157.5 cm (5' 2 ) 10/09/2020 5:44 PM CDT Body Mass Index 36.58 10/09/2020 5:44 PM CDT Plan of Treatment Not on file Insurance [facility] Care Teams Senior Firmware Engineer Relationship Specialty Start Date End Date No, Physician PCP - General 10/09/20
--- OUTSIDE RECORDS SUMMARY | 2024-06-11 06:02 | XMS_ITS | Clinical Summary ---
Author Organization [address] Address [address] [place] [phone] Care Team Providers Care Repair Service Clerk Name Role Phone No, Physician Primary Care Provider [phone] Allergies No known active allergies Medications amoxicillin [...] Comments Blood Pressure 124/80 01/11/2022 11:33 AM SELF PROPELLED HOT MIX ROLLER OPERATOR Pulse 70 01/11/2022 11:33 AM SELF PROPELLED HOT MIX ROLLER OPERATOR Temperature 36.7 C (98 F) 01/11/2022 11:33 AM SELF PROPELLED HOT MIX ROLLER OPERATOR Respiratory Rate 18 01/11/2022 11:33 AM SELF PROPELLED HOT MIX ROLLER OPERATOR Oxygen Saturation 100% 01/11/2022 11:33 AM SELF PROPELLED HOT MIX ROLLER OPERATOR Inhaled Oxygen Concentration - - Weight 90.7 kg (200 lb) 01/11/2022 9:13 AM SELF PROPELLED HOT MIX ROLLER OPERATOR Height 157.5 cm (5' 2 ) [...] 07/02/2024 07/02/2014, 06/28/2009, 12/28/2002, Additional history exists Hepatitis B Screening Completed 05/31/1998 , 05/31/1998, 01/16/1998, Additional history exists Varicella Vaccines Completed 06/28/2009, 03/05/2000 HPV Vaccines Completed 05/21/2018, 09/24, 06/28/2009 Pneumococcal vaccine <65 Aged Out No longer eligible based on patient's age to complete this topic Insurance [facility] Care Teams Repair Service Clerk Relationship Specialty Start Date End Date No, Physician PCP - General 10/09/20
[2024-06-11 06:03] VITALS: BP 148/76; PULSE 100; RESP 19; TEMP 36.7; O2SAT 100
--- NOTE | 2024-06-11 06:25 | ED.GENADULT ---
HPI - General Adult General Chief complaint: Skin/Abscess/Foreign Body Stated complaint: abscess on chest Time Seen by Provider: 06/11/24 06:23 History of Present Illness HPI narrative: Patient is a 28-year-old female who presents emergency department this morning complaining of cellulitis/abscess to her anterior chest. Patient states that initially it started as an ingrown hair follicle and then after picking at it developed into a large area of cellulitis. No active drainage. Patient denies any additional concerns or symptoms at this time. Related Data Allergies Allergy/AdvReac Type Severity Reaction Status Date / Time No Known Allergies Allergy Verified 06/11/24 06:00 Review of Systems Review of Systems: All systems are reviewed and are negative unless stated otherwise in the HPI. [facility] Family History Family History Grandparent Cerebrovascular accident Social History Social History Smoking status: Current every day smoker Tobacco type: cigarettes Alcohol intake: never Substance use: never Do You Feel Safe in your Home?: Yes Lack of Transportation: No Lack of Food: Never True Current Housing: I Have Housing Concerned About Future Housing: No Difficulty Paying Gas/Electric Bills: No Difficulty Paying for Meds: No Currently Unemployed: YES Education: High School Diploma/GED Difficulty w/ Childcare or Family Care: No Exam Narrative: General: Alert, awake, afebrile, in no acute distress. HEENT: PERRL, no rhinorrhea, no post nasal drip, oropharynx clear. Neck: Trachea midline, no JVD, no lymphadenopathy. Cardiovascular: Regular rate and rhythm, no murmurs, rubs or gallops, no peripheral edema. Respiratory: Clear to auscultation bilaterally, no tachypnea, no wheezing, no rhonchi, no rubs, no respiratory distress. Abdomen: Soft, nontender, nondistended, no rebound, no guarding, no peritoneal signs. Musculoskeletal: No joint swelling or deformity, normal muscle tone. Skin: Cellulitis to anterior chest measuring approximately 5 x 5 cm, no drainable abscess noted. Psychiatric: Alert and oriented, normal behavior and judgment for situation. Neurological: Alert and oriented to person, place, and time. Follows all commands. No focal deficits, speech is clear and fluent. Course Vital Signs Vital signs: Vital Signs Temperature 98.0 F 06/11/24 06:03 Pulse Rate 100 06/11/24 06:03 Respiratory Rate 19 06/11/24 06:03 Blood Pressure 148/76 H 06/11/24 06:03 Pulse Oximetry 100 06/11/24 06:03 Oxygen Delivery Room Air 06/11/24 06:03 Temperature 98.0 F 06/11/24 06:03 Pulse Rate 89 06/11/24 06:37 Respiratory Rate 16 06/11/24 06:37 Blood Pressure 131/76 06/11/24 06:37 Pulse Oximetry 100 06/11/24 06:37 Oxygen Delivery Room Air 06/11/24 06:03 Medical Decision Making MDM Narrative Medical decision making narrative: The patient was evaluated by myself in the emergency department. History is obtained from patient who is an independent historian and physical exam was performed. External medical records were reviewed at this time. Patient was administered 1st dose of antibiotic Bactrim in the emergency department and an oral [place] 7.5-325 mg. Differential diagnosis considerations include cellulitis versus abscess. Comorbidities impacting this visit include none. I have evaluated and discussed social determinants of health with the patient that could potentially impact subsequent diagnosis and treatment plans. On repeat assessment of the patient, reevaluation revealed that the patient is doing well and is in no acute distress. Patient symptoms have improved since she arrived to our emergency department. Repeat vital signs were all reviewed and noted to be stable. Differential diagnosis and treatment plan were discussed with the patient at bedside. Patient agrees with discussion and after shared medical decision making agrees with discharge. All questions were answered to the patient's satisfaction. Patient will follow up with her PCP in 3-5 days. A script for Bactrim was sent to patient's pharmacy to take as prescribed for her cellulitis. Patient was provided with strict return precautions and instructed to return to the emergency department if any new or worsening symptoms develop. The patient was discharged in stable condition. Vital Signs Vital Signs: Vital Signs Temperature 98.0 F 06/11/24 06:03 Pulse Rate 100 06/11/24 06:03 Respiratory Rate 19 06/11/24 06:03 Blood Pressure 148/76 H 06/11/24 06:03 Pulse Oximetry 100 06/11/24 06:03 Oxygen Delivery Room Air 06/11/24 06:03 Temperature 98.0 F 06/11/24 06:03 Pulse Rate 89 06/11/24 06:37 Respiratory Rate 16 06/11/24 06:37 Blood Pressure 131/76 06/11/24 06:37 Pulse Oximetry 100 06/11/24 06:37 Oxygen Delivery Room Air 06/11/24 06:03 Discharge Plan Discharge Clinical Impression: Cellulitis Patient Disposition: Home Condition: Improved Instructions: Antibiotic Form, Cellulitis (ED) Additional Instructions: Please take the prescribed antibiotic as instructed for your cellulitis. Return to the emergency department if any new or worsening symptoms develop and follow up with family doctor the next 3-5 days. Patient Language: Qatari Prescriptions: New sulfamethoxazole-trimethoprim [Bactrim DS] 800-160 mg tablet 1 tablet PO Q12H 7 Days Qty: 14 0RF No Action clindamycin HCl [Cleocin HCl] 300 mg capsule 300 mg PO Q6H 7 Days Qty: 28 0RF Follow-up/Referrals: UNKNOWN,DOCTOR [Primary Care Provider] - 3 Days Time of Disposition: 06:26
[2024-06-11] MEDS: SULFAMETHOXAZOLE/TRIMETHOPRIM 800/160 MG DS TABLET 2 TAB PO (06:33)
[2024-06-11] MEDS: HYDROcodone/acetaminophen (*CRX) 7.5-325 MG TABLET 1 TAB PO (06:33)
--- OUTSIDE RECORDS SUMMARY | 2024-06-11 06:36 | XMS_ITS | Clinical Summary ---
Author Organization [facility] [employer] Address [address] [facility] [place] [address] Care Team Providers Care Computer Science Teacher Name Role Phone Unavailable Primary Care Provider Unavailabl e Source Comments [facility] [employer],non-owned Affiliates and Associated Physician Practices is amultiple site organization consisting of ambulatory clinics and hospital sitesin [place], [place], [place] and [place]. This disclosure is being madepursuant to the Care Everywhere program and may not contain all information available regarding this patient. Last updated 17.[facility] Allergies No known active allergies Medications * [...] patient's age to complete this topic Insurance [place] [address] [address]
--- OUTSIDE RECORDS SUMMARY | 2024-06-11 06:36 | XMS_ITS | Referral Summary ---
Author Organization [address] Address [address] [place] [phone] Care Team Providers Care Personnel Manager Name Role Phone No, Physician Primary Care Provider [phone] Allergies No known active allergies Medications amoxicillin [...] Comments Blood Pressure 124/80 01/11/2022 11:33 AM ICE SCRAPER Pulse 70 01/11/2022 11:33 AM ICE SCRAPER Temperature 36.7 C (98 F) 01/11/2022 11:33 AM ICE SCRAPER Respiratory Rate 18 01/11/2022 11:33 AM ICE SCRAPER Oxygen Saturation 100% 01/11/2022 11:33 AM ICE SCRAPER Inhaled Oxygen Concentration - - Weight 90.7 kg (200 lb) 01/11/2022 9:13 AM ICE SCRAPER Height 157.5 cm (5' 2 ) 10/09/2020 5:44 PM CDT Body Mass Index 36.58 10/09/2020 5:44 PM CDT Plan of Treatment Not on file Insurance [facility] Care Teams Personnel Manager Relationship Specialty Start Date End Date No, Physician PCP - General 10/09/20
--- OUTSIDE RECORDS SUMMARY | 2024-06-11 06:36 | XMS_ITS | Clinical Summary ---
Author Organization [address] Address [address] [place] [phone] Care Team Providers Care Core Placer Name Role Phone No, Physician Primary Care Provider [phone] Allergies No known active allergies Medications amoxicillin [...] Comments Blood Pressure 124/80 01/11/2022 11:33 AM BATCH STILL OPERATOR Pulse 70 01/11/2022 11:33 AM BATCH STILL OPERATOR Temperature 36.7 C (98 F) 01/11/2022 11:33 AM BATCH STILL OPERATOR Respiratory Rate 18 01/11/2022 11:33 AM BATCH STILL OPERATOR Oxygen Saturation 100% 01/11/2022 11:33 AM BATCH STILL OPERATOR Inhaled Oxygen Concentration - - Weight 90.7 kg (200 lb) 01/11/2022 9:13 AM BATCH STILL OPERATOR Height 157.5 cm (5' 2 ) [...] patient's age to complete this topic Insurance [facility] * Guarantor: Adelita Schrader Account Type Relation to Patient Date of Phone Billing Address Personal/Family Self 1995 [address] [place] [address] [facility] Care Teams Core Placer Relationship Specialty Start Date End Date No, Physician PCP - General 10/09/20
[2024-06-11 06:37] VITALS: BP 131/76; PULSE 89; RESP 16; O2SAT 100
== END 2024-06-11 07:12 | disposition home or self-care (01) ==
LOC: ANHED 06:34
PROVIDERS: Emergency Provider Emergency Medicine
DX: L03.313 Cellulitis of chest wall (principal); F17.210 Nicotine dependence, cigarettes, uncomplicated
CPT/HCPCS: 99283; A9270

== ENCOUNTER 2024-06-12 02:25 | Emergency (ER) | payer OTHER, SELFPAY ==
[2024-06-12 02:27] VITALS: BP 143/85; PULSE 108; RESP 13; TEMP 36.2; O2SAT 100
--- OUTSIDE RECORDS SUMMARY | 2024-06-12 02:28 | XMS_ITS | Referral Summary ---
Author Organization [address] Address [address] [place] [phone] Care Team Providers Care Heel Attacher Wood Name Role Phone No, Physician Primary Care Provider [phone] Allergies No known active allergies Medications amoxicillin [...] Comments Blood Pressure 124/80 01/11/2022 11:33 AM PERFORMANCE TEST ENGINEER Pulse 70 01/11/2022 11:33 AM PERFORMANCE TEST ENGINEER Temperature 36.7 C (98 F) 01/11/2022 11:33 AM PERFORMANCE TEST ENGINEER Respiratory Rate 18 01/11/2022 11:33 AM PERFORMANCE TEST ENGINEER Oxygen Saturation 100% 01/11/2022 11:33 AM PERFORMANCE TEST ENGINEER Inhaled Oxygen Concentration - - Weight 90.7 kg (200 lb) 01/11/2022 9:13 AM PERFORMANCE TEST ENGINEER Height 157.5 cm (5' 2 ) 10/09/2020 5:44 PM CDT Body Mass Index 36.58 10/09/2020 5:44 PM CDT Plan of Treatment Not on file Insurance [facility] Care Teams Heel Attacher Wood Relationship Specialty Start Date End Date No, Physician PCP - General 10/09/20
--- OUTSIDE RECORDS SUMMARY | 2024-06-12 02:28 | XMS_ITS | Clinical Summary ---
Author Organization [address] Address [address] [place] [id number] Care Team Providers Care Inventory Specialist Manager Name Role Phone No, Physician Primary Care Provider [phone] Allergies No known active allergies Medications amoxicillin [...] Comments Blood Pressure 124/80 01/11/2022 11:33 AM SCRAP DROP OPERATOR Pulse 70 01/11/2022 11:33 AM SCRAP DROP OPERATOR Temperature 36.7 C (98 F) 01/11/2022 11:33 AM SCRAP DROP OPERATOR Respiratory Rate 18 01/11/2022 11:33 AM SCRAP DROP OPERATOR Oxygen Saturation 100% 01/11/2022 11:33 AM SCRAP DROP OPERATOR Inhaled Oxygen Concentration - - Weight 90.7 kg (200 lb) 01/11/2022 9:13 AM SCRAP DROP OPERATOR Height 157.5 cm (5' 2 ) [...] patient's age to complete this topic Insurance [facility] Care Teams Inventory Specialist Manager Relationship Specialty Start Date End Date No, Physician PCP - General 10/09/20
--- OUTSIDE RECORDS SUMMARY | 2024-06-12 02:28 | XMS_ITS | Clinical Summary ---
Author Organization [facility] Address [address] [facility] [place] [address] Care Team Providers Care Liability Claims Manager Name Role Phone Unavailable Primary Care Provider Unavailabl e Source Comments [facility],non-owned Affiliates and Associated Physician Practices is amultiple site organization consisting of ambulatory clinics and hospital sitesin [place], [place], [place] and [place]. This disclosure is being madepursuant to the Care Everywhere program and may not contain all information available regarding this patient. Last updated 17.[facility] Allergies No known active allergies Medications * [...] patient's age to complete this topic [place] [address] [address]
--- NOTE | 2024-06-12 02:46 | PC.NURSE ---
pt left prior to seeing provider. pt stated as she was leaving, I am just going to leave this is ridiculous. I need your name and your boss's name . This rn gave smelter charger name and nurse name. Pt was able to ambulate with a steady unassisted gait with visitor towards the exit of the ed.
--- OUTSIDE RECORDS SUMMARY | 2024-06-12 02:57 | XMS_ITS | Clinical Summary ---
Author Organization [address] Address [address] [place] [id number] Care Team Providers Care Hvac Sheet Metal Installer Name Role Phone No, Physician Primary Care Provider [phone] Allergies No known active allergies Medications amoxicillin [...] Comments Blood Pressure 124/80 01/11/2022 11:33 AM GRANITE POLISHER Pulse 70 01/11/2022 11:33 AM GRANITE POLISHER Temperature 36.7 C (98 F) 01/11/2022 11:33 AM GRANITE POLISHER Respiratory Rate 18 01/11/2022 11:33 AM GRANITE POLISHER Oxygen Saturation 100% 01/11/2022 11:33 AM GRANITE POLISHER Inhaled Oxygen Concentration - - Weight 90.7 kg (200 lb) 01/11/2022 9:13 AM GRANITE POLISHER Height 157.5 cm (5' 2 ) 10/09/2020 [...] patient's age to complete this topic Insurance [facility] Care Teams Hvac Sheet Metal Installer Relationship Specialty Start Date End Date No, Physician PCP - General 10/09/20
--- OUTSIDE RECORDS SUMMARY | 2024-06-12 02:57 | XMS_ITS | Referral Summary ---
Author Organization [address] Address [address] [place] [id number] Care Team Providers Care Global Cto Name Role Phone No, Physician Primary Care Provider [phone] Allergies No known active allergies Medications amoxicillin [...] Comments Blood Pressure 124/80 01/11/2022 11:33 AM ADMINISTRATIVE SUPPORT ASSISTANT Pulse 70 01/11/2022 11:33 AM ADMINISTRATIVE SUPPORT ASSISTANT Temperature 36.7 C (98 F) 01/11/2022 11:33 AM ADMINISTRATIVE SUPPORT ASSISTANT Respiratory Rate 18 01/11/2022 11:33 AM ADMINISTRATIVE SUPPORT ASSISTANT Oxygen Saturation 100% 01/11/2022 11:33 AM ADMINISTRATIVE SUPPORT ASSISTANT Inhaled Oxygen Concentration - - Weight 90.7 kg (200 lb) 01/11/2022 9:13 AM ADMINISTRATIVE SUPPORT ASSISTANT Height 157.5 cm (5' 2 ) 10/09/2020 5:44 PM CDT Body Mass Index 36.58 10/09/2020 5:44 PM CDT Plan of Treatment Not on file Insurance [facility] Care Teams Global Cto Relationship Specialty Start Date End Date No, Physician PCP - General 10/09/20
--- OUTSIDE RECORDS SUMMARY | 2024-06-12 02:57 | XMS_ITS | Clinical Summary ---
Author Organization [facility] Address [address] [facility] [place] [address] Care Team Providers Care Roller Man Name Role Phone Unavailable Primary Care Provider Unavailabl e Source Comments [facility],non-owned Affiliates and Associated Physician Practices is amultiple site organization consisting of ambulatory clinics and hospital sitesin [place], [place], [place] and [place]. This disclosure is being madepursuant to the Care Everywhere program and may not contain all information available regarding this patient. Last updated 17.[facility] Allergies No known active allergies Medications * [...] patient's age to complete this topic [place] [address] [place] [id number]
== END 2024-06-12 02:46 | disposition left against medical advice (07) ==
DX: L03.313 Cellulitis of chest wall (principal)
CPT/HCPCS: 99199